=== PATIENT | female | born 1970 | race Caucasian/White ===

== ENCOUNTER 2017-10-20 08:17 | Day surgery (SDC) | payer OTHER ==
[~2017-10-20] VITALS: Ht 162.6 cm; Wt 93.0 kg
[~2017-10-20 08:17] MED LIST: ADVAIR 100/501 DISK IH; ADVAIR 250/501 DISK IH; ADVIL,NUPRIN,M200 MG PO; AMARYL2 MG PO; ASPIRIN81 M2 PO; BACLOFEN20 MG PO; CYMBALTA60 MG PO; ELAVIL50 MG PO; Flonase BOTH NARES; GILENYA0.5 MG PO; LASIX20 MG PO; METFORMIN HCL1000 MG PO; MICRO-K10 ME2 PO; NORVASC5 MG PO; PRILOSEC20 MG PO; Proventil,Ventolin H IH; TRADJENTA5 MG PO; TRAZODONE HCL50 MG PO; VITAMIN D31000 UNIT PO; XANAX1 MG PO; Zoloft PO
[2017-10-20 09:41] LABS: POINT-OF-CARE METER ID UU14174212
== END 2017-10-20 10:35 | disposition home or self-care (01) ==
LOC: PAIN 08:17 → SDC 09:30 → PAIN 09:30
PROVIDERS: Anesthesiology Pain Medicine
DX: M47.812 Spondylosis without myelopathy or radiculopathy, cervical region (principal); G56.23 Lesion of ulnar nerve, bilateral upper limbs; F17.200 Nicotine dependence, unspecified, uncomplicated
CPT/HCPCS: 82948; J1030; J2250; J3010; S0020

== ENCOUNTER 2017-10-27 09:02 | Day surgery (SDC) | payer OTHER ==
[~2017-10-27] VITALS: Ht 162.6 cm; Wt 93.0 kg
[2017-10-27] MEDS ORDERED: GILENYA0.5 MG PO (09:29)
[2017-10-27 09:38] LABS: POINT-OF-CARE METER ID UU14174212
== END 2017-10-27 10:40 | disposition home or self-care (01) ==
LOC: PAIN 09:02 → SDC 09:30 → PAIN 10:40
PROVIDERS: Anesthesiology Pain Medicine
DX: M47.812 Spondylosis without myelopathy or radiculopathy, cervical region (principal); M54.2 Cervicalgia; G89.29 Other chronic pain; M48.02 Spinal stenosis, cervical region; M48.061 Spinal stenosis, lumbar region without neurogenic claudication; G56.23 Lesion of ulnar nerve, bilateral upper limbs; I10 Essential (primary) hypertension; E11.9 Type 2 diabetes mellitus without complications; G35 Multiple sclerosis; G47.30 Sleep apnea, unspecified; F17.200 Nicotine dependence, unspecified, uncomplicated; Z79.84 Long term (current) use of oral hypoglycemic drugs
CPT/HCPCS: 82948; J1030; J2250; J3010; S0020

== ENCOUNTER 2017-11-17 09:53 | Day surgery (SDC) | payer OTHER ==
[~2017-11-17] VITALS: Ht 162.6 cm; Wt 96.1 kg
[2017-11-17 10:38] LABS: POINT-OF-CARE METER ID UU14174212
== END 2017-11-17 11:18 | disposition home or self-care (01) ==
LOC: PAIN 09:53 → SDC 10:30 → PAIN 10:30
PROVIDERS: Anesthesiology Pain Medicine
DX: M53.3 Sacrococcygeal disorders, not elsewhere classified (principal); M46.1 Sacroiliitis, not elsewhere classified; G56.23 Lesion of ulnar nerve, bilateral upper limbs; M54.2 Cervicalgia; M47.812 Spondylosis without myelopathy or radiculopathy, cervical region; M48.02 Spinal stenosis, cervical region; M48.061 Spinal stenosis, lumbar region without neurogenic claudication; E11.9 Type 2 diabetes mellitus without complications; I10 Essential (primary) hypertension; Z79.84 Long term (current) use of oral hypoglycemic drugs; G35 Multiple sclerosis; Z79.891 Long term (current) use of opiate analgesic; Z87.891 Personal history of nicotine dependence
CPT/HCPCS: 82948; J1030; J2250; J3010; S0020